=== PATIENT | male | born 1970 | race African-American/Black ===

== ENCOUNTER 2017-07-05 18:48 | Emergency (ER) | payer SELFPAY ==
[~2017-07-05] VITALS: Ht 177.8 cm; Wt 87.0 kg
[2017-07-06] MEDS ORDERED: IBUPROFEN 400MG TABLET PO ONE
[2017-07-06] MEDS ORDERED: ACETAMINOPHEN 325MG TABLET PO ONE
[2017-07-06] MEDS ORDERED: TRAMADOL 50MG TABLET PO ONE (01:30)
[2017-07-06 02:00] VITALS: BP 149/99
== END 2017-07-06 02:00 | disposition home or self-care (01) ==
LOC: ER 18:48 → EDBD 18:48 → ER 07-06 02:00
DX: M25.512 Pain in left shoulder (principal); R55 Syncope and collapse; I10 Essential (primary) hypertension; V43.62XA Car passenger injured in collision with other type car in traffic accident, initial encounter; Y93.89 Activity, other specified; Y92.89 Other specified places as the place of occurrence of the external cause; Y99.8 Other external cause status
CPT/HCPCS: 70450; 70486; 72125; 73030; 99284; Z7610